=== PATIENT | female | born 1985 ===

== ENCOUNTER 2016-10-27 23:50 | Emergency (ER) | payer SELFPAY ==
[2016-10-27 23:50] VITALS: BMI 44.9
[2016-10-28 00:09] VITALS: BP 156/81; PULSE 63; RESP 18; TEMP 98; O2SAT 98
[2016-10-28] MEDS ORDERED: Lidocaine 2% Jelly (Uro-Jet) ONE (00:24)
--- NOTE | 2016-10-28 00:36 | ED PDOC ---
HPI: Dental Pain/Injury Time Seen by Provider: 10/28/16 00:15 Chief Complaint (Nursing): Dental Pain Chief Complaint (Provider): Dental Pain History Per: Patient History/Exam Limitations: no limitations Onset/Duration Of Symptoms: Days (x2) Current Symptoms Are (Timing): Still Present Quality: "Pain" Additional Complaint(s): 31 year old female presents to ED with complaints of dental pain x2 days and has no past medical history. Patient states that she received a filling in her upper left molar in the past that is bothering her. (-) facial swelling, fever, or chills. PCP: [facility] Past Medical History Reviewed: Historical Data, Nursing Documentation, Vital Signs Vital Signs: Last Vital Signs Temp 98.0 F 10/28/16 00:07 Pulse 63 10/28/16 00:07 Resp 18 10/28/16 00:07 BP 156/81 H 10/28/16 00:07 Pulse Ox 98 10/28/16 00:07 - Medical History PMH: No Chronic Diseases - Surgical History Surgical History: Denies: No Surg Hx - Family History Family History: States: Unknown Family Hx - Social History Drugs: Denies - Home Medications Home Medications: Ambulatory Orders Medication Instructions Recorded Ferrous Sulfate 325 mg PO BID #30 tab 04/03/15 Ibuprofen [Motrin Tab] 600 mg PO Q6 #30 tab 04/03/15 Sennosides A and B [Senokot Tab] 17.2 mg PO HS #30 tab 04/03/15 oxyCODONE/Acetaminophen [Percocet 1 tab PO Q12 #15 tab 04/03/15 5/325 mg Tab] Amoxicillin 875 mg PO BID #20 tab 09/19/15 Prednisone 50 mg PO ONCE #1 tab 09/19/15 - Allergies Allergies/Adverse Reactions: Allergies Allergy/AdvReac Type Severity Reaction Status Date / Time No Known Allergies Allergy Verified 03/31/15 08:29 Review of Systems ROS Statement: Except As Marked, All Systems Reviewed And Found Negative Constitutional: Negative for: Fever, Chills ENT: Positive for: Other (dental pain) Skin: Negative for: Other ((-) facial swelling) Physical Exam - Reviewed Nursing Documentation Reviewed: Yes Vital Signs Reviewed: Yes - Physical Exam Appears: Positive for: Non-toxic, No Acute Distress Head Exam: Positive for: ATRAUMATIC, NORMOCEPHALIC Skin: Positive for: Normal Color, Warm, Dry ENT: Positive for: Other (Upper left molar TTP. Tooth is decayed. (-) gum swelling/erythema) Neurologic/Psych: Positive for: Alert, Oriented. Negative for: Motor/Sensory Deficits - ECG O2 Sat by Pulse Oximetry: 98 (RA) Pulse Ox Interpretation: Normal Medical Decision Making Medical Decision Makin Initial impression: dental kev Initial plan: * Lidocaine 2% visc 15mL PO * Re-eval 0110 Upon re-evaluation, patient is feeling much better and is stable for discharge home. Patient has her own referral and will see her dentist tomorrow. Scribe Attestation: Documented by Charito Abraham acting as a scribe for Taz Nava MD. Scribe Attestation: All medical record entries made by the Scribe were at my direction and personally dictated by me. I have reviewed the chart and agree that the record accurately reflects my personal performance of the history, physical exam, medical decision making, and the department course for this patient. I have also personally directed, reviewed, and agree with the discharge instructions and disposition. Disposition - Clinical Impression Clinical Impression: Dental caries - Disposition Disposition: Routine/Home Disposition Time: 01:10 Condition: STABLE Additional Instructions: Call the dentist's office today for an appointment. Instructions: Dental Caries (ED) Forms: [facility] (Yakut) Print Language: KHMER
== END 2016-10-28 01:29 | disposition home or self-care (01) ==
LOC: H.ER 23:50
DX: K02.9 Dental caries, unspecified (principal)

== ENCOUNTER 2017-10-02 23:17 | Emergency (ER) | payer SELFPAY ==
[2017-10-02 23:18] VITALS: BMI 44.9
--- NOTE | 2017-10-03 00:43 | ED PDOC ---
HPI: Back Time Seen by Provider: 10/02/17 23:54 Chief Complaint (Nursing): Back Pain Chief Complaint (Provider): upper back pain History Per: Patient History/Exam Limitations: no limitations Onset/Duration Of Symptoms: Hrs Current Symptoms Are (Timing): Still Present Quality Of Discomfort: "Pain" Exacerbating Factor(s): Turning, Movement Additional Complaint(s): 32 y/o female presents for evaluation of upper back pain x 3 hours. Patient states someone was closing a metal gate that covers store fronts and it came down right on her upper back. Patient notes pain with movement. Denies nausea/vomiting, numbness/weakness of extremities, bowel/bladder incontinence. No medications taken for relief thus far Past Medical History Reviewed: Historical Data, Nursing Documentation, Vital Signs Vital Signs: Last Vital Signs Temp 97.9 F 10/02/17 23:29 Pulse 60 10/02/17 23:29 Resp 18 10/02/17 23:29 BP 135/84 10/02/17 23:29 Pulse Ox 99 10/02/17 23:29 - Medical History PMH: No Chronic Diseases - Surgical History Surgical History: Appendectomy, - Family History Family History: States: Unknown Family Hx - Home Medications Home Medications: Ambulatory Orders Medication Instructions Recorded Ferrous Sulfate 325 mg PO BID #30 tab 04/03/15 Ibuprofen [Motrin Tab] 600 mg PO Q6 #30 tab 04/03/15 Sennosides A and B [Senokot Tab] 17.2 mg PO HS #30 tab 04/03/15 oxyCODONE/Acetaminophen [Percocet 1 tab PO Q12 #15 tab 04/03/15 5/325 mg Tab] Amoxicillin 875 mg PO BID #20 tab 09/19/15 Prednisone 50 mg PO ONCE #1 tab 09/19/15 Ibuprofen [Motrin Tab] 800 mg PO Q6 #30 tab 10/28/16 Cyclobenzaprine [Cyclobenzaprine 10 mg PO BID PRN #14 tab 10/03/17 HCl] Naproxen [Naprosyn] 500 mg PO Q12 PRN #20 tablet 10/03/17 - Allergies Allergies/Adverse Reactions: Allergies Allergy/AdvReac Type Severity Reaction Status Date / Time No Known Allergies Allergy Verified 10/02/17 23:29 Review of Systems ROS Statement: Except As Marked, All Systems Reviewed And Found Negative Musculoskeletal: Positive for: Back Pain Physical Exam - Reviewed Nursing Documentation Reviewed: Yes Vital Signs Reviewed: Yes - Physical Exam Appears: Positive for: Well, Non-toxic, No Acute Distress Head Exam: Positive for: ATRAUMATIC, NORMAL INSPECTION, NORMOCEPHALIC Skin: Positive for: Normal Color Eye Exam: Positive for: Normal appearance ENT: Positive for: Normal ENT Inspection Cardiovascular/Chest: Positive for: Regular Rate, Rhythm Respiratory: Positive for: Normal Breath Sounds Gastrointestinal/Abdominal: Positive for: Normal Exam Back: Positive for: Vertebral Tenderness (mid tspine tenderness; no bony deformity, edema, ecchymosis noted), Muscle Spasm (b/l mid tspine paravertebral tenderness). Negative for: L CVA Tenderness, R CVA Tenderness, Decreased ROM Extremity: Positive for: Normal ROM Neurologic/Psych: Positive for: Alert, Oriented. Negative for: Motor/Sensory Deficits - ECG O2 Sat by Pulse Oximetry: 99 - Other Rad xray tspine X-Ray: Viewed By Me X-Ray Interpretation: no acute findings - Progress ED Course And Treament: Toradol IM, flexeril PO, xray CT tspine ordered for further eval EXAM: CT Thoracic Spine Without Intravenous Contrast CLINICAL HISTORY: 32 years old, female; Injury or trauma; Injury Metal door hit upper back; Initial encounter; Blunt trauma (contusions or hematomas); Additional info: Trauma, mid back pain TECHNIQUE: Axial computed tomography images of the thoracic spine without intravenous contrast. All CT scans at this facility use at least one of these dose optimization techniques: automated exposure control; mA and/or kV adjustment per patient size (includes targeted exams where dose is matched to clinical indication); or iterative reconstruction. COMPARISON: No relevant prior studies available. FINDINGS: Vertebrae: Unremarkable. No acute fracture. Discs/spinal canal/neural foramina: No acute findings. No spinal canal stenosis. Soft tissues: Unremarkable. IMPRESSION: Normal thoracic spine CT. On re-eval, patient states pain resolved. Patient educated on findings, discharged with rx Naproxen, flexeril Advised warm compresses Follow up PMD 2-3 days. REturn precautions given Disposition - Clinical Impression Clinical Impression: Back pain - Patient ED Disposition Is Patient to be Admitted: No Counseled Patient/Family Regarding: Studies Performed, Diagnosis, Need For Followup, Rx Given - Disposition Referrals: [facility] [Outside] Disposition: Routine/Home Disposition Time: 05:25 Condition: IMPROVED Prescriptions: Cyclobenzaprine [Cyclobenzaprine HCl] 10 mg PO BID PRN #14 tab PRN Reason: Muscle Spasm Naproxen [Naprosyn] 500 mg PO Q12 PRN #20 tablet PRN Reason: Pain, Moderate (4-7) Instructions: Upper Back Pain Print Language: AFGHAN
[2017-10-03 07:29] VITALS: BP 130/75; PULSE 62; RESP 17; TEMP 98.3; O2SAT 98
--- NOTE | 2017-10-03 10:34 | RAD ---
Date of service: 10/03/2017 HISTORY: injury, back pain COMPARISON: No prior. FINDINGS: BONES: Alignment maintained. No fracture. DISC SPACES: Normal. SOFT TISSUES: Normal. OTHER FINDINGS: None. IMPRESSION: Normal radiographs of the thoracic spine.
--- NOTE | 2017-10-03 11:11 | CT ---
Date of service: 10/03/2017 PROCEDURE: CT Thoracic Spine without contrast HISTORY: trauma, mid back pain COMPARISON: None. TECHNIQUE: Axial computed tomography images were obtained of the thoracic spine without intravenous contrast. Coronal and sagittal reformatted images were created and reviewed. Radiation dose: Total exam DLP = 1211.74 mGy-cm. This CT exam was performed using one or more of the following dose reduction techniques: Automated exposure control, adjustment of the mA and/or kV according to patient size, and/or use of iterative reconstruction technique. FINDINGS: VERTEBRAE: Unremarkable. No fracture. Normal alignment. DISCS/SPINAL CANAL/NEURAL FORAMINA: Within the limits of the CT technique, no disc herniation seen. No central canal or neural foraminal stenosis.. PARASPINAL SOFT TISSUES: Unremarkable. OTHER FINDINGS: Unremarkable. IMPRESSION: Unremarkable CT of the thoracic spine. Concordant results (preliminary interpretation) provided by [employer]. Procedure Completed: 03:32 Preliminary ([facility]) Report: Dictated and Authenticated: 05:13. Final Interpretation: 11:09.
== END 2017-10-03 05:30 | disposition home or self-care (01) ==
LOC: H.ER 23:17
DX: M54.9 Dorsalgia, unspecified (principal)
CPT/HCPCS: 72070; 72128; 81025; 96372; 99283; J1885

== ENCOUNTER 2018-05-29 22:25 | Emergency (ER) | payer SELFPAY ==
[2018-05-29 22:25] VITALS: BMI 44.9
--- NOTE | 2018-05-30 00:08 | ED PDOC ---
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 Patient states she has felt her vaginal parts "slipping down" for the last year, which has gotten worse in the last week. Patient states she feels "pressure" to the area, and also itching and burning; thinks she may have an infection. Denies fever, nausea/vomiting, abdominal pain, dysuria, hematuria, vaginal bleeding/discharge. Past Medical History Reviewed: Historical Data, Nursing Documentation, Vital Signs Vital Signs: Last Vital Signs Temp 97.6 F 05/29/18 23:05 Pulse 70 05/29/18 23:05 Resp 16 05/29/18 23:05 BP 139/86 05/29/18 23:05 Pulse Ox 97 05/29/18 23:05 - Medical History PMH: Diabetes - Surgical History Surgical History: Appendectomy, - Family History Family History: States: Unknown Family Hx - Home Medications Home Medications: Ambulatory Orders Medication Instructions Recorded Ferrous Sulfate 325 mg PO BID #30 tab 04/03/15 Ibuprofen [Motrin Tab] 600 mg PO Q6 #30 tab 04/03/15 Sennosides A and B [Senokot Tab] 17.2 mg PO HS #30 tab 04/03/15 oxyCODONE/Acetaminophen [Percocet 1 tab PO Q12 #15 tab 04/03/15 5/325 mg Tab] Amoxicillin 875 mg PO BID #20 tab 09/19/15 Prednisone 50 mg PO ONCE #1 tab 09/19/15 Ibuprofen [Motrin Tab] 800 mg PO Q6 #30 tab 10/28/16 Cyclobenzaprine [Cyclobenzaprine 10 mg PO BID PRN #14 tab 10/03/17 HCl] Naproxen [Naprosyn] 500 mg PO Q12 PRN #20 tablet 10/03/17 Fluconazole [Diflucan] 150 mg PO ONCE #1 tab 05/30/18 - Allergies Allergies/Adverse Reactions: Allergies Allergy/AdvReac Type Severity Reaction Status Date / Time No Known Allergies Allergy Verified 10/02/17 23:29 Review of Systems ROS Statement: Except As Marked, All Systems Reviewed And Found Negative Genitourinary Female: Positive for: Other (vaginal bulging) Physical Exam - Reviewed Nursing Documentation Reviewed: Yes Vital Signs Reviewed: Yes - Physical Exam Appears: Positive for: Well, Non-toxic, No Acute Distress Head Exam: Positive for: ATRAUMATIC, NORMAL INSPECTION, NORMOCEPHALIC Skin: Positive for: Normal Color Eye Exam: Positive for: Normal appearance ENT: Positive for: Normal ENT Inspection Cardiovascular/Chest: Positive for: Regular Rate, Rhythm Respiratory: Positive for: Normal Breath Sounds Gastrointestinal/Abdominal: Positive for: Normal Exam Pelvic Exam: Positive for: Discharge (white clumpy discharge noted in external vaginal area), Other (exam remarketing rep Maricarmen Melvin RN). Negative for: External Exam Normal (uterine prolapse; no discharge, abscess, tenderness noted) Extremity: Positive for: Normal ROM Neurological/Psych: Positive for: Awake, Alert, Oriented - Laboratory Results Result Diagrams: 05/30/18 01:25 05/30/18 01:26 - ECG O2 Sat by Pulse Oximetry: 97 - Progress ED Course And Treament: accucheck 323; labs, IVF ordered Repeat glucose 301 Patient educated on findings, discharged with rx Diflucan Advised Client Resource Specialist follow up within 2-3 days Follow up PMD for hyperglycemia and elevated LFTs (chronic as per chart) Return precautions given Disposition - Clinical Impression Clinical Impression: Uterine prolapse, Hyperglycemia, Vulvovaginal candidiasis - Patient ED Disposition Is Patient to be Admitted: No Counseled Patient/Family Regarding: Studies Performed, Diagnosis, Need For Followup, Rx Given - Disposition [facility] Disposition: Routine/Home Disposition Time: 03:22 Condition: STABLE Prescriptions: Fluconazole [Diflucan] 150 mg PO ONCE #1 tab Instructions: Vaginal Prolapse, Vulvovaginal Yeast Infection, Hyperglycemia, Adult Print Language: MALAY
[2018-05-30] MEDS: Sodium Chloride 0.9% 1,000 ML IV STA (01:15)
[2018-05-30 01:31] LABS: BASO # 0.1 K/uL (0.0-0.2); BASO % 1.3 % (0.0-2.0); EOS # 0.4 K/uL (0.0-0.7); HEMOGLOBIN 13.5 g/dL (12.0-16.0); LYMPH % 37.4 % (20.0-40.0); MEAN CELL VOLUME 88.6 fl (81.0-99.0); MEAN CORPUSCULAR HEMOGLOBIN 29.8 pg (27.0-31.0); MEAN CORPUSCULAR HGB CONC 33.7 g/dL (33.0-37.0); MEAN PLATELET VOLUME 10.2 fl (7.2-11.7); MONO # 0.4 K/uL (0.0-0.8); MONO % 5.5 % (0.0-10.0); NEUT # 4.1 K/uL (1.8-7.0); NEUT % 50.8 % (50.0-75.0); RBC 4.52 Mil/uL (3.80-5.20); RED CELL DISTRIBUTION WIDTH 13.4 % (11.5-14.5)
[2018-05-30 01:40] LABS: ALB/GLOB RATIO 1.3 (1.0-2.1); ALT/SGPT 252 U/L (9-52); AST/SGOT 145 U/L (14-36); BLOOD UREA NITROGEN 13 mg/dl (7-17); CALCIUM 9.5 mg/dL (8.4-10.2); GFR NON-AFRICAN AMERICAN > 60
[2018-05-30 03:57] VITALS: BP 107/69; PULSE 72; RESP 18; TEMP 97.8; O2SAT 99
== END 2018-05-30 04:00 | disposition home or self-care (01) ==
LOC: H.ER 22:25
DX: B37.3 Candidiasis of vulva and vagina (principal); E11.65 Type 2 diabetes mellitus with hyperglycemia; N81.4 Uterovaginal prolapse, unspecified
CPT/HCPCS: 80053; 81025; 82948; 85025; 96360; 99284; J7030

== ENCOUNTER 2018-07-10 20:52 | Emergency (ER) | payer SELFPAY ==
[2018-07-10 21:26] VITALS: PULSE 92
[2018-07-10] MEDS ORDERED: Sodium Chloride 0.9% 1,000 ML IV STA (21:37)
[2018-07-10] MEDS ORDERED: Iohexol 240 (50 ml) PO ONE (21:50)
[2018-07-10] MEDS ORDERED: Iohexol 240 (50 ml) ONE (21:55)
[2018-07-10 22:15] LABS: BASO % 0.3 % (0.0-2.0); EOS # 0.1 K/uL (0.0-0.7); EOS % 0.9 % (0.0-4.0); HEMOGLOBIN 14.2 g/dL (12.0-16.0); LYMPH # 0.8 K/uL (1.0-4.3); LYMPH % 6.7 % (20.0-40.0); MEAN CELL VOLUME 86.8 fl (81.0-99.0); MEAN CORPUSCULAR HEMOGLOBIN 29.4 pg (27.0-31.0); MEAN CORPUSCULAR HGB CONC 33.9 g/dL (33.0-37.0); MEAN PLATELET VOLUME 9.4 fl (7.2-11.7); MONO # 0.6 K/uL (0.0-0.8); MONO % 4.9 % (0.0-10.0); NEUT # 10.4 K/uL (1.8-7.0); NEUT % 87.2 % (50.0-75.0); PLATELET COUNT 231 K/uL (130-400); RBC 4.81 Mil/uL (3.80-5.20); RED CELL DISTRIBUTION WIDTH 13.2 % (11.5-14.5)
[2018-07-10 22:32] LABS: ALB/GLOB RATIO 1.3 (1.0-2.1); ALBUMIN 4.1 g/dL (3.5-5.0); ALT/SGPT 209 U/L (9-52); AST/SGOT 140 U/L (14-36); BLOOD UREA NITROGEN 10 mg/dl (7-17); CALCIUM 8.8 mg/dL (8.4-10.2); GFR NON-AFRICAN AMERICAN > 60; LIPASE 44 U/L (23-300)
[2018-07-10 22:41] LABS: SQUAMOUS EPITHIAL 6 /hpf (0-5); URINE BILIRUBIN NEGATIVE (NEGATIVE); URINE BLOOD SMALL (NEGATIVE); URINE CLARITY SLIGHTY-CLOUDY (Clear); URINE COLOR YELLOW (YELLOW); URINE GLUCOSE (UA) >=500 mg/dL (NEGATIVE); URINE LEUKOCYTE ESTERASE NEG Leu/uL (Negative); URINE PROTEIN NEGATIVE (NEGATIVE); URINE UROBILINOGEN 0.2-1.0 mg/dL (0.2-1.0)
[2018-07-10 22:45] LABS: BANDS 3 % (0-2); EOSINOPHIL 1 % (0-7); HYPOCHROMIC SLIGHT; LYMPHOCYTE 9 % (20-50); MONOCYTE 4 % (0-10); NEUTROPHIL 83 % (42-75); PLATELET ESTIMATE NORMAL (NORMAL); TOTAL CELLS COUNTED 100
--- NOTE | 2018-07-10 23:12 | ED PDOC ---
HPI: Abdomen Time Seen by Provider: 07/10/18 21:33 Chief Complaint (Nursing): Abdominal Pain Chief Complaint (Provider): Abdominal Pain History Per: Patient History/Exam Limitations: no limitations Onset/Duration Of Symptoms: Hrs (x 11) Current Symptoms Are (Timing): Still Present Location Of Pain/Discomfort: RLQ, LLQ Quality Of Discomfort: "Pain" Associated Symptoms: Nausea, Diarrhea, Loss Of Appetite (decreased) Additional Complaint(s): 33 year old female with a history of obesity, DM and prolapsed uterus presents to the ED for evaluation of generalized lower abdominal pain and 2 episodes of loose, watery diarrhea, onset today at 11 am, approximately 11 hours prior to arrival. Patient describes pain as severe and also reports a decreased appetite. Denies taking medications for pain, vomiting and any additional complaints. PMD: Dr. Brady Past Medical History Reviewed: Historical Data, Nursing Documentation, Vital Signs Vital Signs: Last Vital Signs Temp 99.6 F 07/10/18 21:25 Pulse 92 H 07/10/18 21:25 Resp 18 07/10/18 21:25 BP 133/76 07/10/18 21:25 Pulse Ox 99 07/10/18 21:25 - Medical History PMH: Diabetes Other PMH: obesity and prolapsed uterus - Surgical History Surgical History: Appendectomy, - Family History Family History: States: Unknown Family Hx - Social History Current smoker - smoking cessation education provided: No Alcohol: None Drugs: Denies - Home Medications Home Medications: Ambulatory Orders Medication Instructions Recorded Ferrous Sulfate 325 mg PO BID #30 tab 04/03/15 Ibuprofen [Motrin Tab] 600 mg PO Q6 #30 tab 04/03/15 Sennosides A and B [Senokot Tab] 17.2 mg PO HS #30 tab 04/03/15 oxyCODONE/Acetaminophen [Percocet 1 tab PO Q12 #15 tab 04/03/15 5/325 mg Tab] Amoxicillin 875 mg PO BID #20 tab 09/19/15 Prednisone 50 mg PO ONCE #1 tab 09/19/15 Ibuprofen [Motrin Tab] 800 mg PO Q6 #30 tab 10/28/16 Cyclobenzaprine [Cyclobenzaprine 10 mg PO BID PRN #14 tab 10/03/17 HCl] Naproxen [Naprosyn] 500 mg PO Q12 PRN #20 tablet 10/03/17 Fluconazole [Diflucan] 150 mg PO ONCE #1 tab 05/30/18 Dicyclomine [Bentyl] 20 mg PO Q12 PRN #20 tab 07/11/18 Ondansetron ODT [Zofran ODT] 4 mg PO Q6 PRN #8 odt 07/11/18 - Allergies Allergies/Adverse Reactions: Allergies Allergy/AdvReac Type Severity Reaction Status Date / Time No Known Allergies Allergy Verified 10/02/17 23:29 Review of Systems ROS Statement: Except As Marked, All Systems Reviewed And Found Negative Constitutional: Negative for: Fever Gastrointestinal: Positive for: Nausea, Abdominal Pain, Diarrhea. Negative for: Vomiting Physical Exam - Reviewed Nursing Documentation Reviewed: Yes Vital Signs Reviewed: Yes - Physical Exam Appears: Positive for: Uncomfortable Head Exam: Positive for: ATRAUMATIC, NORMAL INSPECTION, NORMOCEPHALIC Skin: Positive for: Normal Color, Warm, Dry Eye Exam: Positive for: EOMI, Normal appearance, PERRL Neck: Positive for: Normal, Painless ROM, Supple Cardiovascular/Chest: Positive for: Regular Rate, Rhythm. Negative for: Murmur Respiratory: Positive for: Normal Breath Sounds. Negative for: Respiratory Distress Gastrointestinal/Abdominal: Positive for: Tenderness (diffuse abdominal tenderness). Negative for: Mass, Guarding, Rebound Back: Positive for: Normal Inspection. Negative for: L CVA Tenderness, R CVA Tenderness Extremity: Positive for: Normal ROM (x 4). Negative for: Deformity Neurological/Psych: Positive for: Awake, Alert, Normal Tone, Oriented (x 3). N egative for: Motor/Sensory Deficits - Laboratory Results Result Diagrams: 07/10/18 22:07 07/10/18 22:07 Lab Results: Total Bilirubin 0.8 mg/dl (0.2-1.3) 07/10/18 22:07 AST 140 U/L (14-36) H D 07/10/18 22:07 ALT 209 U/L (9-52) H D 07/10/18 22:07 Alkaline Phosphatase 132 U/L (38-126) H 07/10/18 22:07 Total Protein 7.3 G/DL (6.3-8.2) 07/10/18 22:07 Albumin 4.1 g/dL (3.5-5.0) 07/10/18 22:07 Globulin 3.2 gm/dL (2.2-3.9) 07/10/18 22:07 Albumin/Globulin Ratio 1.3 (1.0-2.1) 07/10/18 22:07 Lipase 44 U/L (23-300) 07/10/18 22:07 Urine Color Yellow (YELLOW) 07/10/18 22:10 Urine Clarity Slighty-cloudy (Clear) 07/10/18 22:10 Urine pH 5.0 (5.0-8.0) 07/10/18 22:10 Ur Specific [place] 1.033 (1.003-1.030) H 07/10/18 22:10 Urine Protein Negative mg/dL (NEGATIVE) 07/10/18 22:10 Urine Glucose (UA) >=500 mg/dL (NEGATIVE) 07/10/18 22:10 Urine Ketones 20 mg/dL (NEGATIVE) 07/10/18 22:10 Urine Blood Small (NEGATIVE) 07/10/18 22:10 Urine Nitrate Negative (NEGATIVE) 07/10/18 22:10 Urine Bilirubin Negative (NEGATIVE) 07/10/18 22:10 Urine Urobilinogen 0.2-1.0 mg/dL (0.2-1.0) 07/10/18 22:10 Ur Leukocyte Esterase Neg Ramiro/uL (Negative) 07/10/18 22:10 Urine RBC (Auto) 4 /hpf (0-3) H 07/10/18 22:10 Urine Microscopic WBC 3 /hpf (0-5) 07/10/18 22:10 Ur Squamous Epith Cells 6 /hpf (0-5) H 07/10/18 22:10 - ECG O2 Sat by Pulse Oximetry: 99 (RA) Pulse Ox Interpretation: Normal Medical Decision Making Medical Decision Makin:36 Impression: 33 year old female with abdominal pain and diarrheal illness Initial Plan: --CT Abd Pelvis w/ contrast --CMP --CBC --Urine preg --Urine dip --Bentyl 20 mg PO --NS IV 1,000 mls --Omnipaque 50 ml PO --UA 23:43 Patient continues to report persistent pain. Toradol ordered. 00:35 CT Abd Pelvis COMMENTS: Diffuse thickening of the distal ileal small bowel loops. The liver is of uniform attenuation without mass or defect. There is no intra or extrahepatic biliary ductal dilatation. The spleen is normal. The gallbladder is within normal limits. The pancreas is of normal contour and attenuation characteristics. There is no evidence of adrenal mass. Both kidneys demonstrate prompt and equal nephrograms. The kidneys are normal in size, shape and configuration. There is no evidence of renal or ureteral mass. No renal or ureteral calculi are identified. There is no hydroureter or hydronephrosis. No evidence for appendicitis. No evidence for small or large bowel obstruction. There is no evidence of abdominal ascites or lymphadenopathy. There is no evidence of intrinsic or extrinsic bladder mass. There is no pelvic ascites or lymphadenopathy. Images of the lung bases show no evidence of pleural or parenchymal mass. There are no pleural effusions. The bony structures are free of lytic or blastic lesions. IMPRESSION: Uncomplicated ileitis 01:38 On re-evaluation, patient reports improvement of symptoms. Labs reviewed and reveal no clinically significant abnormalities. Patient is stable and will be discharged with prescriptions for Zofran ODT and Bentyl. Diagnosis is gastroenteritis. Scribe Attestation: Documented by Viki Luo, acting as a scribe Dalton Govea MD Provider Scribe Attestation: All medical record entries made by the Scribe were at my direction and personally dictated by me. I have reviewed the chart and agree that the record accurately reflects my personal performance of the history, physical exam, m edical decision making, and the department course for this patient. I have also personally directed, reviewed, and agree with the discharge instructions and disposition Disposition - Clinical Impression Clinical Impression: Gastroenteritis - Patient ED Disposition Is Patient to be Admitted: No - Disposition Disposition: Routine/Home Disposition Time: 01:41 Condition: STABLE Prescriptions: Dicyclomine [Bentyl] 20 mg PO Q12 PRN #20 tab PRN Reason: abdominal pain/diarrhea Ondansetron ODT [Zofran ODT] 4 mg PO Q6 PRN #8 odt PRN Reason: Nausea/Vomiting Instructions: Gastroenteritis (ED) Forms: [employer] Connect (Welsh)
[2018-07-11] MEDS ORDERED: Iohexol 300 100 ML IJ ONE
[2018-07-11 02:40] VITALS: BP 114/57; RESP 16; TEMP 99.1; O2SAT 96
[2018-07-11 03:17] VITALS: BMI 20.5
--- NOTE | 2018-07-11 11:06 | CT ---
Date of service: 07/11/2018 PROCEDURE: CT Abdomen and Pelvis with contrast HISTORY: abd pain COMPARISON: None. TECHNIQUE: Contrast dose: 95 cc of Omni 300 Radiation dose: Total exam DLP = 883.08 mGy-cm. This CT exam was performed using one or more of the following dose reduction techniques: Automated exposure control, adjustment of the mA and/or kV according to patient size, and/or use of iterative reconstruction technique. FINDINGS: LOWER THORAX: Unremarkable. LIVER: Unremarkable. No gross lesion or ductal dilatation. GALLBLADDER AND BILE DUCTS: Unremarkable. PANCREAS: Unremarkable. No gross lesion or ductal dilatation. SPLEEN: Unremarkable. ADRENALS: Unremarkable. No mass. KIDNEYS AND URETERS: Unremarkable. No hydronephrosis. No solid mass. VASCULATURE: Unremarkable. No aortic aneurysm. No aortic atherosclerotic calcification or mural plaque present. BOWEL: There is mural thickening in the distal ileum. This is consistent with inflammatory bowel disease or Crohn's disease. There is no obstruction APPENDIX: Normal appendix. PERITONEUM: Unremarkable. No free fluid. No free air. LYMPH NODES: Unremarkable. No enlarged lymph nodes. BLADDER: Unremarkable. REPRODUCTIVE: Unremarkable. BONES: No acute fracture. OTHER FINDINGS: The report concurs with the preliminary [facility] report IMPRESSION: There is mural thickening in the distal ileum. This is consistent with inflammatory bowel disease or Crohn's disease. There is no obstruction
== END 2018-07-11 02:05 | disposition home or self-care (01) ==
LOC: H.ER 20:52
DX: K52.9 Noninfective gastroenteritis and colitis, unspecified (principal); E11.9 Type 2 diabetes mellitus without complications
CPT/HCPCS: 74177; 80053; 81003; 81025; 83690; 85025; 96360; 99285; J1885; J7030; Q9966; Q9967